=== PATIENT | female | born 1960 | race Caucasian/White ===

== ENCOUNTER 2016-09-12 03:45 | Emergency (ER) | payer BC ==
--- NOTE | ~2016-09-12 | CT16 ---
[facility] A Service of [facility] RADIOLOGY TEXT RESULTS PATIENT: HUSSAIN QUACH LOCATION: [facility] : 60 UNIT #: [id number] AGE: [address]: Mac Aguila MD SEX: F ORDER DR: [id number] [place] [id number] [facility]. [place], [place] [address] [id number] E MR#: [id number] Acc #: [id number] NAME: HUSSAIN QUACH : 1960 SEX: F STUDY DATE/TIME: 09/12/2016 7:00 UNIT: [facility] ROOM: STUDY DESCRIPTION: CT Angio Chest for PE Attending Physician: Mac Aguila M.D. Ordering Physician: Toni Brown M.D. Primary Care Physician: Primary Care Physician No MEDICAL IMAGING REPORT This report is preliminary unless electronic signature is present EXAM CTA chest with contrast, PE protocol 09/12/2016 HISTORY 56-year-old female with shortness of air beginning yesterday. Tachycardia. Elevated D-dimer. COMPARISON None. TECHNIQUE Helical scan performed through the chest following the timed bolus administration of IV contrast per PE protocol. Coronal 3-D MIP reconstructions. Sagittal reformatted images. This CT exam was performed with one or more of the following radiation dose reduction techniques: Automatic exposure control, adjustment of mA and/or kV according to patient size, and iterative reconstruction. FINDINGS There is adequate opacification of the pulmonary arteries with no filling defects noted. Thoracic aorta normal in course and caliber without dissection. Heart size normal. No pericardial effusion. No pleural effusion. No pneumothorax. No parenchymal infiltrates. Incidental scanning through the upper abdomen demonstrates postsurgical changes presumably related to prior gastric bypass. No acute bony abnormality. IMPRESSION 1. Negative for pulmonary emboli. 2. Negative for thoracic aortic aneurysm/dissection. 3. No acute pulmonary process. [facility] A Service of [facility] RADIOLOGY TEXT RESULTS PATIENT: HUSSAIN QUACH LOCATION: [facility] : 60 UNIT #: [id number] AGE: [address]: Mac Aguila MD SEX: F ORDER DR: Dictated by... Emory Navarro M.D. THIS IS AN ELECTRONICALLY VERIFIED REPORT Emory Navarro M.D. at 09/13/2016 8:41 AM ZACH/urszula TD: 09/12/2016 20:19 JOB #: [id number] MEDICAL IMAGING REPORT Page 1 of 1 COPY
--- NOTE | ~2016-09-12 | CR72 ---
[facility] A Service of [facility] RADIOLOGY TEXT RESULTS PATIENT: HUSSAIN QUACH LOCATION: [facility] : 60 UNIT #: [id number] AGE: [address]: Mac Aguila MD SEX: F ORDER DR: [id number] [facility] [address] [facility]. [place], [place] [address] [id number] E MR#: [id number] Acc #: [id number] NAME: HUSSAIN QUACH : 1960 SEX: F STUDY DATE/TIME: 09/12/2016 4:15 UNIT: [facility] ROOM: STUDY DESCRIPTION: CR Chest Single View Portable Attending Physician: Mac Aguila M.D. Ordering Physician: Toni Brown M.D. Primary Care Physician: Primary Care Physician No MEDICAL IMAGING REPORT This report is preliminary unless electronic signature is present EXAM Portable chest. INDICATION Dyspnea, cough, shortness of air tonight. COMPARISON None. FINDINGS Portable view of the chest was obtained. The heart size and they vascularity are normal. Lungs are clear. The bones are unremarkable. IMPRESSION No active disease. Dictated by... Roney Vasquez M.D. THIS IS AN ELECTRONICALLY VERIFIED REPORT Roney Vasquez M.D. at 09/12/2016 9:54 PM ADAM/kayley TD: 09/12/2016 19:06 JOB #: [id number] MEDICAL IMAGING REPORT Page 1 of 1 COPY
--- NOTE | ~2016-09-12 | EKG ---
PATIENT: HUSSAIN QUACH UNIT #: [id number] Ventricular Rate: 92 BPM Atrial Rate: 92 BPM P-R Interval: 178 ms QRS Duration: 88 ms Q-T Interval: 376 ms QTC Calculation(Bezet): 464 ms P [place]: 36 degrees Calculated R [place]: 27 degrees Calculated T [place]: 49 degrees Diagnosis Line: Normal sinus rhythm Diagnosis Line: Normal ECG Diagnosis Line: No previous ECGs available Diagnosis Line: Confirmed by CLOTILDE BAUTISTA MD ([id number]) on Diagnosis Line: 09/12/2016 3:54:28 PM INTERPRETING MD: BASIL
[2016-09-12 03:36] LABS: POC - CKMB 1.3 ng/mL (0.0-7.9); POC - TROPONIN <0.05 ng/mL (<=0.05)
[~2016-09-12 03:45] MED LIST: ANTIVERT PO; ATORVASTATIN CA10 MG PO; BUSPIRONE HCL10 MG; FLECAINIDE ACET50 MG PO; FUROSEMIDE40 MG PO; IBUPROFEN800 MG PO; KLOR-CON PO; MACROBID100 MG PO; METOPROLOL SUCC25 MG PO; PREMARIN; PYRIDIUM PO; XARELTO10 MG PO
[2016-09-12 04:00] LABS: BASOPHIL# 0.1 X10e3 (0-0.3); EOSINOPHIL# 0.2 X10e3 (0-0.7); EOSINOPHIL% 1.7 % (0.0-7.0); HEMATOCRIT 39.2 % (35.0-45.0); HEMOGLOBIN 12.8 gm/dL (12.0-16.0); LYMPHOCYTE# 4.1 X10e3 (1.0-3.5); LYMPHOCYTE% 39.6 % (17.0-45.0); MEAN CELL VOLUME 88.6 FL (83-96); MEAN CORPUSCULAR HGB CONC 32.7 g/dL (30-36); MEAN PLATELET VOLUME 8.1 FL (6.5-11.5); MONOCYTE# 0.6 X10e3 (0-1.0); MONOCYTE% 5.8 % (3.0-12.0); NEUTROPHIL# 5.3 X10e3 (1.5-7.1); NEUTROPHIL% 51.9 % (40-75); PLATELET COUNT 349 X10e3 (140-420); RED BLOOD COUNT 4.43 X10e (3.90-5.30); RED CELL DISTRIBUTION WIDTH 14.7 % (11.0-15.5); WHITE BLOOD COUNT 10.3 X10e3 (4.0-10.5)
[2016-09-12 04:01] LABS: DIFF IND NO
[2016-09-12 04:15] LABS: PARTIAL THROMBOPLASTIN TIME 32.7 SECONDS (23.5-31.3); PROTHROMBIN TIME (PATIENT) 10.1 SECONDS (9.6-11.5)
[2016-09-12 04:43] LABS: ALBUMIN SERUM 4.3 g/dL (3.5-5.0); ALKALINE PHOSPHATASE 192 U/L (32-92); ALT (SGPT) 40 U/L (10-40); AST (SGOT) 50 U/L (10-42); BILIRUBIN, DIRECT <0.1 mg/dL (0.0-0.2); BILIRUBIN,INDIRECT 0.3 mg/dL (0.0-0.9); BILIRUBIN,TOTAL 0.4 mg/dL (0.2-2.0); BLOOD UREA NITROGEN 13 mg/dL (9-23); CALCIUM SERUM 9.5 mg/dL (8.4-10.2); CARBON DIOXIDE 20 mmol/L (22-31); CHLORIDE 105 mmol/L (100-111); GLUCOSE FASTING 79 mg/dL (70-110); MAGNESIUM 1.8 mg/dL (1.6-3.0); POTASSIUM 3.5 mmol/L (3.5-5.1); PROTEIN TOTAL SERUM 8.1 g/dL (6.0-8.3); SODIUM 142 mmol/L (135-145)
[2016-09-12 04:44] LABS: ALCOHOL BLOOD 162 mg/dL (0)
== END 2016-09-12 08:50 | disposition home or self-care (01) ==
LOC: CED 03:45
PROVIDERS: Emergency Medicine
DX: R00.2 Palpitations (principal); R06.00 Dyspnea, unspecified; F10.10 Alcohol abuse, uncomplicated; F41.9 Anxiety disorder, unspecified; E11.9 Type 2 diabetes mellitus without complications; I48.91 Unspecified atrial fibrillation; I10 Essential (primary) hypertension; Z86.2 Personal history of diseases of the blood and blood-forming organs and certain disorders involving the immune mechanism; Z79.899 Other long term (current) drug therapy
CPT/HCPCS: 36415; 71010; 71275; 80048; 80076; 82553; 83735; 83880; 84443; 84484; 85025; 85379; 85610; 85730; 93005; 99284; G0480; Q9967

== ENCOUNTER 2016-11-08 10:43 | Emergency (ER) | payer BC ==
[2016-11-08 11:20] LABS: BASOPHIL% 0.6 % (0-2.5); EOSINOPHIL% 0.1 % (0.0-7.0); HEMATOCRIT 34.5 % (35.0-45.0); HEMOGLOBIN 11.3 gm/dL (12.0-16.0); LYMPHOCYTE# 1.3 X10e3 (1.0-3.5); LYMPHOCYTE% 20.5 % (17.0-45.0); MEAN CORPUSCULAR HEMOGLOBIN 28.2 PG (28-34); MEAN CORPUSCULAR HGB CONC 32.8 g/dL (30-36); MEAN PLATELET VOLUME 7.6 FL (6.5-11.5); MONOCYTE# 0.4 X10e3 (0-1.0); MONOCYTE% 5.6 % (3.0-12.0); NEUTROPHIL# 4.6 X10e3 (1.5-7.1); NEUTROPHIL% 73.2 % (40-75); PLATELET COUNT 274 X10e3 (140-420); RED BLOOD COUNT 4.01 X10e (3.90-5.30); RED CELL DISTRIBUTION WIDTH 14.1 % (11.0-15.5); WHITE BLOOD COUNT 6.3 X10e3 (4.0-10.5)
[2016-11-08 11:28] LABS: DIFF IND NO
[2016-11-08 11:38] LABS: PROTHROMBIN TIME (PATIENT) 10.1 SECONDS (9.6-11.5)
[2016-11-08 11:44] LABS: ALBUMIN SERUM 3.3 g/dL (3.5-5.0); ALKALINE PHOSPHATASE 139 U/L (32-92); ALT (SGPT) 22 U/L (10-40); AST (SGOT) 36 U/L (10-42); BILIRUBIN, DIRECT 0.1 mg/dL (0.0-0.2); BILIRUBIN,INDIRECT 0.8 mg/dL (0.0-0.9); BILIRUBIN,TOTAL 0.9 mg/dL (0.2-2.0); BLOOD UREA NITROGEN 11 mg/dL (9-23); BUN/CREATININE RATIO 13.75; CALCIUM SERUM 8.7 mg/dL (8.4-10.2); CARBON DIOXIDE 23 mmol/L (22-31); CHLORIDE 100 mmol/L (100-111); CREATININE SERUM 0.8 mg/dL (0.6-1.4); GLOM FILT RATE Estimated 82.5 mL/min (>60); GLUCOSE FASTING 129 mg/dL (70-110); POTASSIUM 4.3 mmol/L (3.5-5.1); PROTEIN TOTAL SERUM 6.5 g/dL (6.0-8.3); SODIUM 136 mmol/L (135-145)
[2016-11-08 11:45] LABS: ALCOHOL BLOOD <5 mg/dL (0)
[2016-11-08 12:12] LABS: URINE SOURCE CLEAN CATCH
[2016-11-08 12:29] LABS: URINE APPEARANCE CLEAR; URINE BILIRUBIN NEG (NEG); URINE BLOOD TRACE (NEG); URINE COLOR YELLOW; URINE GLUCOSE NEG (NEG); URINE KETONE 3+ (NEG); URINE LEUKOCYTE ESTERASE 1+ (NEG); URINE NITRATE NEG (NEG); URINE PH 5.5 (5-8); URINE PROTEIN NEG (NEG)
[2016-11-08 12:32] LABS: CULTURE INDICATED? YES; URINE BACTERIA AUWI NEG (NEGATIVE); URINE SQUAMOUS EPITHELIAL CELL MOD /[HPF]
[2016-11-08 12:50] LABS: AMPHETAMINE NEG (NEG); BARBITURATES NEG (NEG); BENZODIAZEPINES POS (NEG); COCAINE NEG (NEG); MARIJUANA NEG (NEG); OPIATES NEG (NEG); TRICYCLIC ANTIDEPRESSANTS NEG (NEG); U METHADONE NEG (NEG)
[2016-11-08 13:09] LABS: U HYALINE CASTS AUWI 0-2 /[LPF]; URINE MUCUS PRESENT
== END 2016-11-08 14:59 | disposition home or self-care (01) ==
LOC: CED 10:43
PROVIDERS: Emergency Medicine
DX: F19.10 Other psychoactive substance abuse, uncomplicated (principal); T50.995A Adverse effect of other drugs, medicaments and biological substances, initial encounter; Y90.9 Presence of alcohol in blood, level not specified; I48.91 Unspecified atrial fibrillation; E11.9 Type 2 diabetes mellitus without complications; E78.5 Hyperlipidemia, unspecified; Z90.49 Acquired absence of other specified parts of digestive tract; Z90.710 Acquired absence of both cervix and uterus; Z79.899 Other long term (current) drug therapy; Y92.9 Unspecified place or not applicable
CPT/HCPCS: 36415; 51702; 80048; 80076; 80307; 81003; 82947; 85025; 85610; 87086; 96365; 96375; 99284; G0480; J2405; J3411; J3475